=== PATIENT | female | born 1985 | race Caucasian/White ===

== ENCOUNTER 2017-09-12 23:49 | Emergency (ER) | payer OTHER ==
[~2017-09-12] VITALS: Ht 172.7 cm; Wt 147.9 kg
[~2017-09-12 23:49] MED LIST: ASPIR 8181 M1 PO; ENDOCET 5-3251 EACH PO; IBUPROFEN800 MG PO; LABETALOL HCL200 MG PO; LABETALOL HCL300 MG PO; PRENATAL TABLE1 EAC3 PO; PROCARDIA XL60 MG PO; Vicodin,Lortab 5/500 PO; Zestril,Prinivil PO
[2017-09-13 00:13] LABS: WHITE BLOOD COUNT 11.5 K/uL (4.1-10.2)
[2017-09-13 00:14] LABS: HEMATOCRIT 33.4 % (36.0-46.0); MCH 28.9 PG (29.0-34.0); MCHC 32.9 G/DL (30.0-36.0); MCV 87.9 FL (83-99); PLATELET COUNT 310 K/uL (156-360); RBC DIS.WIDTH-CV 12.9 % (11.8-14.6); RBC DIS.WIDTH-SD 41.6 % (39-53)
[2017-09-13 00:22] LABS: ALBUMIN 4.2 g/dL (3.2-4.8); CHLORIDE 107 mEq/L (99-109); POTASSIUM 3.7 mEq/L (3.7-5.4); SODIUM 140 mEq/L (136-147)
[2017-09-13 00:24] LABS: GLUCOSE 106 mg/dL (70-99); TOTAL PROTEIN 7.8 g/dL (6.4-8.3)
[2017-09-13 00:26] LABS: TOTAL BILIRUBIN 0.3 mg/dL (0.0-1.0)
[2017-09-13 00:28] LABS: ALKALINE PHOSPHATASE 95 IU/L (3-129); CREATININE 0.8 mg/dL (0.6-1.3); GFR ESTIMATE (CALCULATED) > 59 mL/min/
[2017-09-13 00:29] LABS: AST (GOT) 19 IU/L (2-34); UREA NITROGEN (BUN) 18 mg/dL (9-23)
[2017-09-13 00:31] LABS: ALT (GPT) 22 IU/L (3-49)
[2017-09-13 00:36] LABS: QUANTITATIVE HCG 11864.7 MIU/ML
[2017-09-13 03:03] LABS: APPEARANCE CLOUDY ((CLEAR)); BILIRUBIN NEGATIVE; BLOOD LARGE; GLUCOSE (STRIP) NEGATIVE; KETONES NEGATIVE; LEUKOCYTES SMALL; NITRITE NEGATIVE; PROTEIN (STRIP) 100; SPECIFIC GRAVITY 1.013 (1.000-1.030); UROBILINOGEN 0.2 MG/DL (0.2-1.0)
[2017-09-13 03:05] LABS: COLOR RED ((YELLOW))
[2017-09-13 03:21] LABS: RED BLOOD CELLS TNTC /HPF (0-5)
[2017-09-13 03:22] LABS: UCUL ADDED? YES; URINE COMMENT FIELD OBSCURED BY
[2017-09-13] MEDS ORDERED: PERCOCET 7.51 TABLET PO (04:21)
[2017-09-13] MEDS ORDERED: MOTRIN600 MG PO (04:21)
[2017-09-13 04:35] VITALS: BP 168/84
== END 2017-09-13 04:38 | disposition home or self-care (01) ==
LOC: EME 23:49
DX: O03.4 Incomplete spontaneous abortion without complication (principal); N83.202 Unspecified ovarian cyst, left side; I10 Essential (primary) hypertension; Z67.90 Unspecified blood type, Rh positive
CPT/HCPCS: 76801; 80053; 81003; 84702; 85027; 86900; 86901; 87086; 99281; 99284